=== PATIENT | male | born 1970 | race Caucasian/White ===

== ENCOUNTER 2020-09-02 23:23 | Inpatient (IN) | payer MEDICARE, SELFPAY ==
[2020-09-02 23:34] VITALS: BP 151/78; PULSE 104; RESP 37; TEMP 39.7; O2SAT 85; BMI 20.3
--- NOTE | 2020-09-02 23:38 | XRR_ITS ---
PROCEDURE INFORMATION: Exam: XR Chest Exam date and time: 09/02/2020 11:46 PM Age: 49 years old Clinical indication: Dyspnea; Prior surgery; Surgery date: 6+ months; Surgery type: Right lower lobe lung removal; Additional info: SOB TECHNIQUE: Imaging protocol: XR of the chest. Views: 1 view. COMPARISON: No relevant prior studies available. FINDINGS: Lungs: There is mild multifocal ill-defined opacity in the left lung base. Pleural spaces: There is no pneumothorax or pleural effusion. Heart/Mediastinum: Right lower lobectomy with marked volume loss in the right hemithorax and rightward displacement of the mediastinum. Cardiomediastinal contours are distorted due to mediastinal shift. Bones/joints: There is a healed fracture of the right posterior 4th rib. XR/XR chest 1V portable [id number] IMPRESSION: 1. Mild nonspecific opacity in the left lung base. Possible atelectasis or consolidation. 2. Right lower lobectomy with volume loss in right hemithorax.
--- NOTE | 2020-09-02 23:39 | ECG_ITS ---
[facility] Test Date: 2020-09-02 Pat Name: Blake Soto Department: Room: Gender: Male Improvement Nurse: : 1970 Requested By: Ashish Joyner Order Number: [id number] Namita MD: Leo Cline M.D. Measurements Intervals [place] Rate: 108 P: 250 OR: 158 QRS: 65 QRSD: 87 T: 251 QT: 294 QTc: 394 Interpretive Statements ECTOPIC ATRIAL TACHYCARDIA ST DEVIATION AND MODERATE T-WAVE ABNORMALITY, CONSIDER ANTEROLATERAL ISCHEMIA [-0.1+ mV T WAVE IN V3-V6] ST DEVIATION AND MODERATE T-WAVE ABNORMALITY, CONSIDER INFERIOR ISCHEMIA [-0.1+ mV T WAVE IN II/aVF] No previous ECG available for comparison Electronically Signed On 09-03-2020 12:34:50 CDT by Leo Cline M.D. [id number] f
[2020-09-02 23:44] LABS: ABG PCO2 46.1 mmHg (35-45); ABG PH Result 7.42 (7.35-7.45); Arterial Blood Gas Hematocrit 45.7 % (42-52); Base Excess ABG 4.4 mmol/L (-2.0-2.0); Blood Gas Sample Site Brachial, right; Blood Gas Sample Type Arterial; Carboxyhemoglobin 1.2 %THgb (0.4-20.1); HCO3 ABG 29.8 mmol/L (22-26); HGB O2 Sat 92.1 % (95-100); Methemoglobin 0.8 % (0.4-1.5); Oxygen Device NC; PO2 ABG 64.3 mmHg (80.0-100.0); Total Hemoglobin 14.9 g/dL (14-18)
[2020-09-02 23:54] VITALS: BP 145/81; PULSE 110; RESP 38; O2SAT 95
[2020-09-03] VITALS (10 sets, daily range): BP systolic 92–117; BP diastolic 51–73; PULSE 71–113; RESP 16–31; TEMP 36.6–37.9; O2SAT 94–100
[2020-09-03] MEDS: acetaminophen 325 mg Tablet 650 MG PO ×2 (00:19→08:00)
[2020-09-03 00:21] LABS: Basophils % 0.4 %; Eosinophils % 0.4 %; Hematocrit 41.5 % (42.0-52.0); Hemoglobin 14.2 g/dL (11.7-16.6); Lymphocytes # 0.4 10^3/uL (0.8-4.8); Lymphocytes % 4.1 %; Mean Corpuscular HGB Conc 34.2 g/dL (30.0-36.0); Mean Corpuscular Volume 87.6 fL (80-94); Monocytes # 0.3 10^3/uL (0.2-0.9); Monocytes % 2.9 %; Neutrophils # 8.57 10^3/uL (1.8-7.7); Neutrophils % 91.8 %; Nucleated Red Blood Cells % 0 %; Platelet Count 192 10^3/cmm (130-400); Red Blood Count 4.74 10^6/uL (4.1-5.3); Red Cell Distribution Width 12.1 % (12.1-15.1); White Blood Count 9.3 10^3/uL (4.0-10.0)
[2020-09-03 00:25] LABS: Influenza A by IFA Negative (Negative); Influenza B by IFA Negative (Negative); SARS Covid-2 Antigen Negative (Negative)
[2020-09-03 00:28] LABS: Lactic Sepsis W/Reflex 1.4 mmol/L (0.5-2.2)
[2020-09-03 00:32] LABS: Troponin(5th) Baseline 12 ng/L (0-15)
[2020-09-03 00:41] LABS: Alanine Aminotransferase 30 U/L (0-41); Albumin Level 4.1 g/dL (3.5-5.2); Alkaline Phosphatase 78 IU/L (40-130); Anion Gap 15.5 (5-19); Aspartate Amino Transferase 29 U/L (0-40); Blood Urea Nitrogen 19 mg/dL (6-20); Calcium 8.9 mg/dL (8.5-10.5); Carbon Dioxide 29 mmol/L (22-29); Chloride 95 mmol/L (98-107); Globulin 2.7 g/dL (1.3-4.6); Glomerular Filtration Rate 79.8 mL/min (90-130); Glucose 140 mg/dL (65-115); NT Pro B Type Natriuretic Pept 83 pg/mL (0-125); Osmolality Calculated 285 mOsm/kg (285-295); Potassium 4.5 mmol/L (3.5-5.1); Sodium 135 mmol/L (136-145); Total Protein 6.8 g/dL (6.6-8.7)
[2020-09-03 00:43] LABS: Alcohol Level < 10 mg/dL (0-10)
--- NOTE | 2020-09-03 01:32 | CTR_ITS ---
PROCEDURE INFORMATION: Exam: CTA Chest With Contrast Exam date and time: 09/03/2020 1:48 AM Age: 49 years old Clinical indication: Dyspnea; Prior surgery; Surgery date: 6+ months; Additional info: SOB tachycardia TECHNIQUE: Imaging protocol: Computed tomographic angiography of the chest with contrast. 3D rendering (Not supervised by radiologist): MIP and/or 3D reconstructed images were created by the technologist. Radiation optimization: All CT scans at this facility use at least one of these dose optimization techniques: automated exposure control; mA and/or kV adjustment per patient size (includes targeted exams where dose is matched to clinical indication); or iterative reconstruction. Contrast material: OMNI 350; Contrast volume: 95 ml; Contrast route: INTRAVENOUS (IV); COMPARISON: CR (CHEST, ) 09/02/2020 11:42 PM RADIATION DOSE METRICS: Total DLP (mGy-cm): 547.82 FINDINGS: Pulmonary arteries: The pulmonary arteries are adequately opacified for evaluation to the subsegmental level. There is no filling defect to suggest embolism. Aorta: There is mild aortic atherosclerotic disease. Lungs: There is extensive consolidation throughout the left upper and lower lobe. The left upper lobe fills the right hemithorax. The right lung has been resected. Pleural spaces: Unremarkable. No pneumothorax. No pleural effusion. Heart: Heart size is normal. There is no pericardial effusion. Mediastinal space: There is marked rightward mediastinal shift due to right pneumonectomy. There is truncation of the right main bronchus in the hilum. Lymph nodes: There is no mediastinal or hilar lymphadenopathy. Adrenal glands: The adrenal glands are hypertrophic bilaterally. Bones/joints: Bones are unremarkable. Soft tissues: Unremarkable. CT/CT angio chest PE protcl [id number] IMPRESSION: 1. Extensive consolidation throughout the left lung consistent with infection. 2. No pulmonary embolism. 3. Right pneumonectomy. Radiation Dose CTDIVOL = (mGy): DLP = 547.82 (mGy-cm)
--- NOTE | 2020-09-03 01:39 | ECG_ITS ---
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 Measurements Intervals [place] Rate: 104 P: -87 [place]: 158 QRS: 64 QRSD: 92 T: 236 QT: 286 QTc: 377 Interpretive Statements ECTOPIC ATRIAL TACHYCARDIA ST DEVIATION AND MODERATE T-WAVE ABNORMALITY, CONSIDER ANTERIOR ISCHEMIA [-0.1+ mV T WAVE IN V3/V4] ST DEVIATION AND MODERATE T-WAVE ABNORMALITY, CONSIDER INFERIOR ISCHEMIA [-0.1+ mV T WAVE IN II/aVF] Compared to ECG 09/02/2020 23:42:33 No significant changes Electronically Signed On 09-03-2020 12:38:09 CDT by Leo Cline M.D. [id number]
[2020-09-03] MEDS: iohexol 350 mg/mL 100 mL Btl IV (02:16)
[2020-09-03 02:20] LABS: Troponin 5 2HR 13.05 ng/L (0-15); Troponin 5 2HR Delta 1.05 ABS# (0-10)
[2020-09-03] MEDS: ketorolac 30 mg/mL INJ IVP (02:22)
[2020-09-03] MEDS: azithromycin 500 MG in sodium chloride 0.9% 250 ML 250 MG IV (03:04)
[2020-09-03] MEDS: cefTRIAXone 1,000 MG in sodium chloride 0.9% (plus) 50 ML 100 MG IV (03:05)
--- NOTE | 2020-09-03 03:18 | P.HP_ITS ---
Providers/Chief Complaint Admitting Physician: Julito Holman Chief Complaint: difficulty breathing History of Present Illness 49-year-old male with a past medical history significant for lung cancer s/p right pnuemonectomy/chemo in who presented to ER with shortness of breath. Upon arrival to emergency room patient's initial laboratory work-up showed WBC of 9.3, hemoglobin of 14.2, hematocrit 41.5 and a platelet count of 192 arterial blood gases showed a pH of 7.42, PCO2 of 46.1, PO2 of 64.3 and bicarb of 29.8. Sodium 135, potassium 4.5, chloride 95, bicarb 29, BUN 19 and creatinine of 1.0. Lactic acid of 1.4. Troponin trend was negative. Influenza A B and Covid antigen was negative. PCR was sent. CTA chest: Did not show any evidence of pulmonary embolism however did show extensive consolidation throughout the left lung consistent with infection. Previous right pneumonectomy was noted. Patient was started on ceftriaxone 1 g IV x1 and azithromycin 500 mg IV x1 Review of Systems General: Reports: 10 or more systems reviewed and unremarkable except in HPI and below Medications/Allergies Allergies Allergy/AdvReac Type Severity Reaction Status Date / Time No Known Allergies Allergy Verified 09/02/20 23:50 PFSH Acute PFSH: Medical History (Updated 09/03/20 @ 06:23 by Julito Holman MD) Lung cancer Surgical History (Updated 09/03/20 @ 06:23 by Julito Holman MD) H/O pneumonectomy Social History (Updated 09/03/20 @ 06:23 by Julito Holman MD) Smoking and tobacco status: never smoked Alcohol intake: never Substance/Drug Use: former Vitals/I&O/Wt Last Vital Signs Temp 98.0 F 09/03/20 04:17 Pulse 88 09/03/20 04:17 Resp 16 09/03/20 04:17 BP 97/60 09/03/20 04:17 Pulse Ox 98 09/03/20 04:17 09/02/20 09/02/20 09/03/20 14:59 22:59 06:59 Intake Total 300 / 300 Output Total 0 / 0 Balance 300 / 300 Weight last 48 hrs Weight 68.039 kg Physical Exam Narrative: EXAM NARRATIVE: General: Alert, Awake, oriented x 3 HEENT: EOMI CVS: RRR Chest : Decrease BS on L>R Abd: SOft NT/ND Ext; no Edema Data : 09/03/20 00:15 09/02/20 23:48 Micro: Microbiology 09/03/20 00:08 Blood Culture - Preliminary Blood SPECIMEN COLLECTED 09/02/20 23:48 Blood Culture - Preliminary Blood SPECIMEN COLLECTED A&P Assessment and plan (1) Community acquired pneumonia: CTA Chest PE protocol - Extensive consolidation of Left Continue ceftriaxone 2g IV q24hr Azithromycin 500mg IVdaily Sputum Culture Strep pneumo ag Blood culture x2 Covid-19 PCR - Pending Tylenol PRN Status: Acute Attestations Medical Necessity Statement*: Will require >2 midnight stay in hospital for eval and treatment Time Spent in Patient Care: Greater than 35 minutes (>than 50% of time s pent in counselling and/or direct pt care on unit) . 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
--- NOTE | 2020-09-03 05:51 | W.ED.SOB ---
HPI - SOB/Dyspnea General: Chief Complaint: Shortness of Breath/Dyspnea Stated Complaint: difficulty breathing Time Seen by Provider: 09/02/20 23:33 History of Present Illness: HPI Narrative: 49-year-old male complains of fever, shortness of breath, and lethargy for the last 24 hours. He has a history of a right lower lobectomy for cancer. He has oxygen prescribed, but does not use it. MD elicited complaint: shortness of breath Pertinent past history: pneumonia Onset (ago): hour(s) Timing: constant Severity: moderate Relieving factors: oxygen Associated symptoms: Reports fever(s); Deny abdominal pain, chest pain, dizziness, nausea, palpitations or vomiting Related Data: Home oxygen amount: none Review of Systems Const: Reports: fever(s) and chills Eyes: Denies: change in vision ENMT: Denies: odynophagia or sinus pain Card: Denies: chest pain, palpitations or irregular heart rhythm Resp: Reports: dyspnea, productive cough and wheezing GI: Denies: abdominal pain, nausea or vomiting : Denies: difficulty urinating or hematuria Musc: Denies: neck pain or back pain Skin/Breast: Denies: rash or erythema Neuro: Denies: headache(s), dizziness or vertigo Psych: Denies: anxiety PFSH ED PFSH: Medical History (Updated 09/03/20 @ 07:10 by Ashish Cardona DO) Lung cancer Surgical History (Updated 09/03/20 @ 06:23 by Julito Holman MD) H/O pneumonectomy Social History (Updated 09/03/20 @ 06:23 by Julito Holman MD) Smoking and tobacco status: never smoked Alcohol intake: never Substance/Drug Use: former Physical Exam Const: GENERAL APPEARANCE: ill appearing and frail appearing ORIENTATION/CONSCIOUSNESS: Yes oriented to person, Yes oriented to place and Yes oriented to time HENMT: COMMON NORMALS: normocephalic, external ears normal and Normal external nose present HEAD & SCALP: normocephalic FACE & SINUS: normal facial exam NOSE: Normal external nose present and No nasal discharge present EXTERNAL EAR: Yes external ears normal Eye: COMMON NORMALS: Equal, round and reactive pupils present, EOMs intact bilaterally and conjunctivae normal EYELID: eyelids normal CONJUNCTIVA: Yes conjunctivae normal PUPIL: Yes Equal, round and reactive pupils present Neck/C-Spine: GENERAL: No tracheal deviation Chest: COMMONS NORMALS: normal inspection of the chest CHEST: No tenderness Resp: COMMON NORMALS: negative for clear to auscultation bilaterally EFFORT & INSPECTION: Yes tachypneic, Yes respiratory distress, Yes retractions, No uses accessory muscles and No tracheal deviation AUSCULTATION: not clear to auscultation bilaterally, rhonchi, no wheezes and diminished lung sounds Cardio: COMMON NORMALS: regular rhythm RATE: tachycardic RHYTHM: regular rhythm HEART SOUNDS: no murmurs PERIPHERAL PULSES: radial pulses present GI: INSPECTION: No abdominal distension AUSCULTATION: No Hyperactive bowel sounds present and No Hypoactive bowel sounds present PALPATION: No Guarding due to palpation present (GI) and No Rigid due to palpation PERCUSSION: no dullness to percussion and no tympanic to percussion Neuro: SENSORIUM/ORIENTATION: Yes oriented to person, Yes oriented to place and Yes oriented to time Skin: COMMON NORMALS: no rashes or lesions noted GENERAL SKIN EXAM: no rashes or lesions noted Course Consultations: Consultation #1: reina Vital Signs: Vital signs: Vital Signs Temperature 98.0 F 09/03/20 04:17 Pulse Rate 88 09/03/20 04:17 Respiratory Rate 16 09/03/20 04:17 Blood Pressure 97/60 09/03/20 04:17 Pulse Oximetry 98 09/03/20 04:17 MDM - SOB/Dyspnea MDM Narrative: Medical decision making narrative: 49-year-old male with history of lung cancer. He presents with a fever, shortness of breath, and hypoxia. White count only 9.3. His rapid Covid is negative. PCR is pending. His chest x-ray did not reveal significant infiltrate, however CTA revealed significant consolidation in the left lower lobe. Lab Data: Labs: Lab Results 09/02/20 09/02/20 09/02/20 Range/Units 23:40 23:48 23:48 WBC (4.0-10.0) 10^3/ uL RBC (4.1-5.3) 10^6/u L Hgb (11.7-16.6) g/dL Hct (42.0-52.0) % MCV (80-94) fL MCH (28.0-34.0) pg MCHC (30.0-36.0) g/dL RDW (12.1-15.1) % Plt Count (130-400) 10^3/c mm MPV (7.4-10.4) fL Neut % (Auto) % Lymph % (Auto) % Giles % (Auto) % Eos % (Auto) % Baso % (Auto) % Neut # (Auto) (1.8-7.7) 10^3/u L Lymph # (Auto) (0.8-4.8) 10^3/u L Giles # (Auto) (0.2-0.9) 10^3/u L Eos # (Auto) (0.0-0.8) 10^3/u L Baso # (Auto) (0.0-0.1) 10^3/u L Nucleated RBC % (a uto) % Nucleated RBCs # /100WBC Specimen Type Arterial Sample Site Brachial, right ABG pH 7.42 (7.35-7.45) ABG pCO2 46.1 H (35-45) mmHg ABG pO2 64.3 L (80.0-100.0) mmH g ABG HCO3 29.8 H (22-26) mmol/L ABG Base Excess 4.4 H (-2.0-2.0) mmol/ L Pb Test N/a Hematocrit 45.7 (42-52) % Hgb O2 Saturation 92.1 L (95-100) % Carboxyhemoglobin 1.2 (0.4-20.1) %THgb Methemoglobin 0.8 (0.4-1.5) % Total Hemoglobin 14.9 (14-18) g/dL O2 Delivery Device Nc O2 Liters/Min 3.0 % Mine Car Repairer ID Hinja Sodium 135 L (136-145) mmol/L Potassium 4.5 (3.5-5.1) mmol/L Chloride 95 L (98-107) mmol/L Carbon Dioxide 29 (22-29) mmol/L Anion Gap 15.5 (5-19) BUN 19 (6-20) mg/dL Creatinine 1.0 (0.7-1.2) mg/dL GFR Calculation 79.8 L (90-130) mL/min Glucose 140 H (65-115) mg/dL Calculated Osmolal ity 285 (285-295) mOsm/k g Lactic Acid 1.4 (0.5-2.2) mmol/L Calcium 8.9 (8.5-10.5) mg/dL Total Bilirubin 1.0 (0.15-1.2) mg/dL AST 29 (0-40) U/L ALT 30 (0-41) U/L Alkaline Phosphata se 78 (40-130) IU/L Troponin T Baselin e (0-15) ng/L Troponin T 120 Min [place] (0-15) ng/L Delta Troponin T (0-10) ABS# NT-Pro-B Natriuret Pep 83 (0-125) pg/mL Total Protein 6.8 (6.6-8.7) g/dL Albumin 4.1 (3.5-5.2) g/dL Globulin 2.7 (1.3-4.6) g/dL Ethyl Alcohol < 10 (0-10) mg/dL Influenza Type A A g (Negative) Influenza Type B A g (Negative) SARS-CoV-2 Ag (Rap id) (Negative) 09/02/20 09/02/20 09/02/20 Range/Units 23:48 23:53 23:53 WBC (4.0-10.0) 10^3/ uL RBC (4.1-5.3) 10^6/u L Hgb (11.7-16.6) g/dL Hct (42.0-52.0) % MCV (80-94) fL MCH (28.0-34.0) pg MCHC (30.0-36.0) g/dL RDW (12.1-15.1) % Plt Count (130-400) 10^3/c mm MPV (7.4-10.4) fL Neut % (Auto) % Lymph % (Auto) % Giles % (Auto) % Eos % (Auto) % Baso % (Auto) % Neut # (Auto) (1.8-7.7) 10^3/u L Lymph # (Auto) (0.8-4.8) 10^3/u L Giles # (Auto) (0.2-0.9) 10^3/u L Eos # (Auto) (0.0-0.8) 10^3/u L Baso # (Auto) (0.0-0.1) 10^3/u L Nucleated RBC % (a uto) % Nucleated RBCs # /100WBC Specimen Type Sample Site ABG pH (7.35-7.45) ABG pCO2 (35-45) mmHg ABG pO2 (80.0-100.0) mmH g ABG HCO3 (22-26) mmol/L ABG Base Excess (-2.0-2.0) mmol/ L Pb Test Hematocrit (42-52) % Hgb O2 Saturation (95-100) % Carboxyhemoglobin (0.4-20.1) %THgb Methemoglobin (0.4-1.5) % Total Hemoglobin (14-18) g/dL O2 Delivery Device O2 Liters/Min % Mine Car Repairer ID Sodium (136-145) mmol/L Potassium (3.5-5.1) mmol/L Chloride (98-107) mmol/L Carbon Dioxide (22-29) mmol/L Anion Gap (5-19) BUN (6-20) mg/dL Creatinine (0.7-1.2) mg/dL GFR Calculation (90-130) mL/min Glucose (65-115) mg/dL Calculated Osmolal ity (285-295) mOsm/k g Lactic Acid (0.5-2.2) mmol/L Calcium (8.5-10.5) mg/dL Total Bilirubin (0.15-1.2) mg/dL AST (0-40) U/L ALT (0-41) U/L Alkaline Phosphata se (40-130) IU/L Troponin T Baselin e 12 (0-15) ng/L Troponin T 120 Min [place] (0-15) ng/L Delta Troponin T (0-10) ABS# NT-Pro-B Natriuret Pep (0-125) pg/mL Total Protein (6.6-8.7) g/dL Albumin (3.5-5.2) g/dL Globulin (1.3-4.6) g/dL Ethyl Alcohol (0-10) mg/dL Influenza Type A A g Negative (Negative) Influenza Type B A g Negative (Negative) SARS-CoV-2 Ag (Rap id) Negative (Negative) 09/03/20 09/03/20 Range/Units 00:15 01:40 WBC 9.3 (4.0-10.0) 10^3/ uL RBC 4.74 (4.1-5.3) 10^6/u L Hgb 14.2 (11.7-16.6) g/dL Hct 41.5 L (42.0-52.0) % MCV 87.6 (80-94) fL MCH 30.0 (28.0-34.0) pg MCHC 34.2 (30.0-36.0) g/dL RDW 12.1 (12.1-15.1) % Plt Count 192 (130-400) 10^3/c mm MPV 11.0 H (7.4-10.4) fL Neut % (Auto) 91.8 % Lymph % (Auto) 4.1 % Giles % (Auto) 2.9 % Eos % (Auto) 0.4 % Baso % (Auto) 0.4 % Neut # (Auto) 8.57 H (1.8-7.7) 10^3/u L Lymph # (Auto) 0.4 L (0.8-4.8) 10^3/u L Giles # (Auto) 0.3 (0.2-0.9) 10^3/u L Eos # (Auto) 0.0 (0.0-0.8) 10^3/u L Baso # (Auto) 0.0 (0.0-0.1) 10^3/u L Nucleated RBC % (a uto) 0 % Nucleated RBCs # 0.0 /100WBC Specimen Type Sample Site ABG pH (7.35-7.45) ABG pCO2 (35-45) mmHg ABG pO2 (80.0-100.0) mmH g ABG HCO3 (22-26) mmol/L ABG Base Excess (-2.0-2.0) mmol/ L Pb Test Hematocrit (42-52) % Hgb O2 Saturation (95-100) % Carboxyhemoglobin (0.4-20.1) %THgb Methemoglobin (0.4-1.5) % Total Hemoglobin (14-18) g/dL O2 Delivery Device O2 Liters/Min % Mine Car Repairer ID Sodium (136-145) mmol/L Potassium (3.5-5.1) mmol/L Chloride (98-107) mmol/L Carbon Dioxide (22-29) mmol/L Anion Gap (5-19) BUN (6-20) mg/dL Creatinine (0.7-1.2) mg/dL GFR Calculation (90-130) mL/min Glucose (65-115) mg/dL Calculated Osmolal ity (285-295) mOsm/k g Lactic Acid (0.5-2.2) mmol/L Calcium (8.5-10.5) mg/dL Total Bilirubin (0.15-1.2) mg/dL AST (0-40) U/L ALT (0-41) U/L Alkaline Phosphata se (40-130) IU/L Troponin T Baselin e (0-15) ng/L Troponin T 120 [address] [place] 13.05 (0-15) ng/L Delta Troponin T 1.05 (0-10) ABS# NT-Pro-B Natriuret Pep (0-125) pg/mL Total Protein (6.6-8.7) g/dL Albumin (3.5-5.2) g/dL Globulin (1.3-4.6) g/dL Ethyl Alcohol (0-10) mg/dL Influenza Type A A g (Negative) Influenza Type B A g (Negative) SARS-CoV-2 Ag (Rap id) (Negative) Discharge Plan Discharge Patient Disposition: Admitted As Inpatient Admit Provider: Julito Holman Clinical Impression: Community acquired pneumonia Qualifiers: Laterality: left Lung location: lower lobe of lung Qualified Code(s): J18.9 - Pneumonia, unspecified organism Condition: Fair Coding Level of Care Code ED Certified Legal Secretary Specialist for [facility] Fwd Exam Comprehensive
[2020-09-03] MEDS: sodium chloride 0.9% 1,000 ML 75 ML IV (06:02)
[2020-09-03] MEDS: enoxaparin 40 mg/0.4 mL Syringe SUBCUT (06:03)
[2020-09-03] MEDS: famotidine 20 mg Tablet PO ×2 (08:00→17:04)
--- NOTE | 2020-09-03 09:12 | PC.PHAR ---
pt states he takes care of his own medications-pt states he only has a proair inhaler and albuterol neb solution-pt states he uses [facility] [phone],[facility] [phone],[facility] [phone]-and [facility] [place] [phone] they all states they havent filled those medication for the pt-
--- NOTE | 2020-09-03 11:35 | PC.CHAP ---
Pastoral Care Encounter/Spiritual Assessment Type of Contact [] Declined mica plate layer visit [] Patient/Family/Request visit [] Outpatient visit [x] Follow-up visit [] Physician referral [] Code/Alert [] Routine visit [] Staff referral [] Actively dying [] Patient sleeping [] Family support [] [] Out of room [] Palliative care [] [] Receiving care in room [] Pre-surgical visit [] Trauma [] Long length of stay [] ICU visit [] Other: Relational/Emotional Strength [] Patient feels connected with others/family/visitors/staff [] Distress [] Loneliness/isolation [] Abandonment Spirituality of Patient [] Person of Perla [] Attends Restorationism of their Perla [] Believes in Prayer [] Reads Bible or Advent materials [] There are Spiritual issues to be addressed Physician Chief Of Pathology Interventions [] Prayer [] Active listening [] Non-anxious presence [] Spiritual/emotional support [] Crisis/trauma care [] Spiritual counseling [] Bereavement support [] Provided bereavement packet [] Provided Bible/devotional materials [] Provided toy/stuffed animal, coloring book to patient or family member [] Provided Communion [] Anointing/[place] [] Salvation [] Completed spiritual assessment [] Other: Impact on Illness or Injury [] Angry [] Fearful [] Anxious [] Often cries [] Exhaustion [] Unable to work [] Unable to attend buddhism [] Unable to walk/stand [] Unable to read [] Unable to drive [] Unable to eat/drink [] Unable to sleep [] Unable to be with family [] Patient intubated [] Other: Summary dont enter room Time spent with patient
--- NOTE | 2020-09-03 11:36 | PC.CHAP ---
Pastoral Care Encounter/Spiritual Assessment Type of Contact [] Declined travel specialist visit [] Patient/Family/Request visit [] Outpatient visit [] Follow-up visit [] Physician referral [] Code/Alert [] Routine visit [] Staff referral [] Actively dying [] Patient sleeping [] Family support [] [] Out of room [] Palliative care [] [] Receiving care in room [] Pre-surgical visit [] Trauma [] Long length of stay [] ICU visit [] Other: Relational/Emotional Strength [] Patient feels connected with others/family/visitors/staff [] Distress [] Loneliness/isolation [] Abandonment Spirituality of Patient [] Person of Perla [] Attends Sikhism of their Perla [] Believes in Prayer [] Reads Bible or Gnosticist materials [] There are Spiritual issues to be addressed Bilingual Executive Assistant Interventions [] Prayer [] Active listening [] Non-anxious presence [] Spiritual/emotional support [] Crisis/trauma care [] Spiritual counseling [] Bereavement support [] Provided bereavement packet [] Provided Bible/devotional materials [] Provided toy/stuffed animal, coloring book to patient or family member [] Provided Communion [] Anointing/[place] [] Salvation [] Completed spiritual assessment [] Other: Impact on Illness or Injury [] Angry [] Fearful [] Anxious [] Often cries [] Exhaustion [] Unable to work [] Unable to attend restorationist [] Unable to walk/stand [] Unable to read [] Unable to drive [] Unable to eat/drink [] Unable to sleep [] Unable to be with family [] Patient intubated [] Other: Summary Time spent with patient
--- NOTE | 2020-09-03 12:38 | PM.PN ---
Subjective Subjective: Interval history: Patient was seen and examined this morning, shortness of breath is improved, continued to be afebrile, currently saturating well on 2 L of oxygen via nasal cannula. Vitals/I&O/Wt Last Vital Signs Temp 97.9 F 09/03/20 11:22 Pulse 71 09/03/20 11:22 Resp 17 09/03/20 11:22 BP 93/51 09/03/20 11:22 Pulse Ox 100 09/03/20 11:22 09/02/20 09/03/20 09/03/20 22:59 06:59 14:59 Intake Total 300 / 300 120 / 120 Output Total 0 / 0 Balance 300 / 300 120 / 120 Weight last 48 hrs Weight 66.769 kg Weight 68.039 kg Physical Exam Const: COMMON NORMALS: patient oriented x3 HENMT: COMMON NORMALS: normocephalic and atraumatic HEAD & SCALP: normocephalic and atraumatic Chest: CHEST: Yes Symmetrical chest wall rise Resp: COMMON NORMALS: clear to auscultation bilaterally EFFORT & INSPECTION: Yes symmetric chest movement AUSCULTATION: clear to auscultation bilaterally Cardio: COMMON NORMALS: regular rate, regular rhythm, S1 normal heart sound present, S2 normal heart sound present, No gallops present (Cardio), No murmurs present (Cardio), No rub (Cardio) and Peripheral pulses 2+ throughout RATE: regular rate RHYTHM: regular rhythm HEART SOUNDS: S1 normal heart sound present and S2 normal heart sound present PERIPHERAL PULSES: Peripheral pulses 2+ throughout GI: COMMON NORMALS: Normal to inspection, nondistended, normoactive bowel sounds present, Soft to palpation, non-tender, No hepatosplenomegaly present and no masses AUSCULTATION: Yes normoactive bowel sounds PALPATION: Yes Soft to palpation and Yes No hepatosplenomegaly present RECTAL EXAM: Yes deferred Extremity: COMMON NORMALS: no clubbing, cyanosis or edema and no pedal edema Neuro: COMMON NORMALS: patient oriented x3 Data : 09/03/20 00:15 09/02/20 23:48 Micro: Microbiology 09/03/20 00:08 Blood Culture - Preliminary Blood SPECIMEN COLLECTED 09/02/20 23:48 Blood Culture - Preliminary Blood SPECIMEN COLLECTED A&P Assessment and plan (1) Community acquired pneumonia: CTA Chest PE protocol - Extensive consolidation of Left Continue ceftriaxone 2g IV q24hr Azithromycin 500mg IVdaily Sputum Culture Urine Legionella antigen: Urine bacterial antigen: Blood culture x2: Pending Covid-19 PCR - Pending Tylenol PRN Status: Acute Qualifiers: Laterality: left Lung location: lower lobe of lung Qualified Code(s): J18.9 - Pneumonia, unspecified organism Attestations Medical Necessity Statement*: Patient needs to be in the hospital for management of pneumonia Coding Level of Care Code Acute 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
--- NOTE | 2020-09-03 19:22 | PC.NURSE ---
Report to Flavio KIDD at this time.
[2020-09-03] MEDS: zolpidem 5 mg Tablet PO (22:13)
[2020-09-04] VITALS (7 sets, daily range): BP systolic 91–135; BP diastolic 53–92; PULSE 72–100; RESP 17–18; TEMP 36.9–37.3; O2SAT 94–98
[2020-09-04] MEDS: cefTRIAXone 2,000 MG in sodium chloride 0.9% (plus) 50 ML 100 MG IV (03:54)
[2020-09-04 05:40] LABS: Basophils # 0.1 10^3/uL (0.0-0.1); Basophils % 0.3 %; Eosinophils # 0.1 10^3/uL (0.0-0.8); Eosinophils % 0.8 %; Hematocrit 42.1 % (42.0-52.0); Lymphocytes # 1.2 10^3/uL (0.8-4.8); Lymphocytes % 6.7 %; Mean Corpuscular HGB Conc 33.3 g/dL (30.0-36.0); Mean Corpuscular Hemoglobin 29.9 pg (28.0-34.0); Mean Platelet Volume 10.5 fL (7.4-10.4); Monocytes # 1.3 10^3/uL (0.2-0.9); Monocytes % 7.1 %; Neutrophils # 15.31 10^3/uL (1.8-7.7); Neutrophils % 84.5 %; Nucleated Red Blood Cells % 0 %; Platelet Count 167 10^3/cmm (130-400); Red Blood Count 4.68 10^6/uL (4.1-5.3); Red Cell Distribution Width 12.3 % (12.1-15.1); White Blood Count 18.1 10^3/uL (4.0-10.0)
[2020-09-04 06:04] LABS: Alanine Aminotransferase 19 U/L (0-41); Albumin Level 3.5 g/dL (3.5-5.2); Alkaline Phosphatase 77 IU/L (40-130); Anion Gap 15.2 (5-19); Aspartate Amino Transferase 16 U/L (0-40); Blood Urea Nitrogen 18 mg/dL (6-20); Calcium 8.6 mg/dL (8.5-10.5); Carbon Dioxide 26 mmol/L (22-29); Chloride 100 mmol/L (98-107); Globulin 2.5 g/dL (1.3-4.6); Glomerular Filtration Rate 120.4 mL/min (90-130); Glucose 96 mg/dL (65-115); Osmolality Calculated 286 mOsm/kg (285-295); Potassium 4.2 mmol/L (3.5-5.1); Sodium 137 mmol/L (136-145); Total Bilirubin 0.5 mg/dL (0.15-1.2)
[2020-09-04 06:06] LABS: Procalcitonin 8.55 ng/mL (0-0.5)
[2020-09-04] MEDS: enoxaparin 40 mg/0.4 mL Syringe SUBCUT (06:26)
[2020-09-04] MEDS: azithromycin 500 MG in sodium chloride 0.9% 250 ML 250 MG IV (07:51)
[2020-09-04] MEDS: famotidine 20 mg Tablet PO (07:52)
--- NOTE | 2020-09-04 11:28 | PM.DCS ---
Discharge Providers Date of Admission: 09/03/20 03:11 Date of Discharge: September 04, 2020 Attending Provider at Admission: Julito Holman Attending Provider at Discharge: Yasir Grant MD Diagnoses at Discharge Discharge Diagnosis (1) Community acquired pneumonia: Status: Acute Qualifiers: Laterality: left Lung location: lower lobe of lung Qualified Code(s): J18.9 - Pneumonia, unspecified organism Reason for Visit Reason for Visit: difficulty breathing Hospital Course Hospital Course 49-year-old male with a past medical history significant for lung cancer s/p right pnuemonectomy/chemo in s who presented to ER with shortness of breath. Upon arrival to emergency room patient's initial laboratory work-up showed WBC of 9.3, hemoglobin of 14.2, hematocrit 41.5 and a platelet count of 192 arterial blood gases showed a pH of 7.42, PCO2 of 46.1, PO2 of 64.3 and bicarb of 29.8. Sodium 135, potassium 4.5, chloride 95, bicarb 29, BUN 19 and creatinine of 1.0. Lactic acid of 1.4. Troponin trend was negative. Influenza A B and Covid antigen was negative. PCR was sent. CTA chest: Did not show any evidence of pulmonary embolism however did show extensive consolidation throughout the left lung consistent with infection. Previous right pneumonectomy was noted. Patient was started on ceftriaxone 1 g IV x1 and azithromycin 500 mg IV x1. During the hospital stay he was managed for pneumonia, responded well to the IV antibiotic, blood cultures at the time of discharge was negative. Urine Legionella as well as bacterial antigen is still pending. Patient showed significant clinical improvement at the time of discharge his shortness of breath had resolved. Home oxygen evaluation was done, patient failed to qualify for home oxygen. He was discharged on p.o. levofloxacin 750 mg for additional 7-days. He responded well to the above medical management was discharged in stable condition. Physical Exam Const: COMMON NORMALS: patient oriented x3 HENMT: COMMON NORMALS: normocephalic and atraumatic HEAD & SCALP: normocephalic and atraumatic Chest: CHEST: Yes Symmetrical chest wall rise Resp: COMMON NORMALS: clear to auscultation bilaterally EFFORT & INSPECTION: Yes symmetric chest movement AUSCULTATION: clear to auscultation bilaterally Cardio: COMMON NORMALS: regular rate, regular rhythm, S1 normal heart sound present, S2 normal heart sound present, No gallops present (Cardio), No murmurs present (Cardio), No rub (Cardio) and Peripheral pulses 2+ throughout RATE: regular rate RHYTHM: regular rhythm HEART SOUNDS: S1 normal heart sound present and S2 normal heart sound present PERIPHERAL PULSES: Peripheral pulses 2+ throughout GI: COMMON NORMALS: Normal to inspection, nondistended, normoactive bowel sounds present, Soft to palpation, non-tender, No hepatosplenomegaly present and no masses AUSCULTATION: Yes normoactive bowel sounds PALPATION: Yes Soft to palpation and Yes No hepatosplenomegaly present RECTAL EXAM: Yes deferred Extremity: COMMON NORMALS: no clubbing, cyanosis or edema and no pedal edema Neuro: COMMON NORMALS: patient oriented x3 Discharge Data Data Completed and Pending: Completed Studies During Hospitalization Category Date Time Status CT angio chest PE protcl 18010 Urge nt Cat Scan 09/03/20 01:32 Completed XR chest 1V [place] [id number] Urgent Exams 09/02/20 23:38 Completed Pending at discharge Category Date Time Status Bacterial Antigen Routine Lab 09/03/20 18:30 Uncollected Basic Metabolic P ronald AM LABS Lab 09/05/20 04:00 Ordered Basic Metabolic P ronald AM LABS Lab 09/06/20 04:00 Ordered Basic Metabolic P ronald AM LABS Lab 09/07/20 04:00 Ordered Blood Culture Sta t Lab 09/02/20 23:48 Results Complete Blood Co unt w/Auto AM LABS Lab 09/05/20 04:00 Ordered Complete Blood Co unt w/Auto AM LABS Lab 09/06/20 04:00 Ordered Complete Blood Co unt w/Auto AM LABS Lab 09/07/20 04:00 Ordered Coronavirus Test [facility] Lab 09/03/20 03:30 Received Legionella Antige n STAT Routine Lab 09/03/20 18:30 Uncollected Procalcitonin AM LABS Lab 09/05/20 04:00 Ordered Labs from last 24 hours 09/04/20 09/04/20 09/04/20 05:08 05:08 05:08 WBC 18.1 H RBC 4.68 Hgb 14.0 Hct 42.1 MCV 90.0 MCH 29.9 MCHC 33.3 RDW 12.3 Plt Count 167 MPV 10.5 H Neut % (Auto) 84.5 Lymph % (Auto) 6.7 [place] % (Auto) 7.1 Eos % (Auto) 0.8 Baso % (Auto) 0.3 Neut # (Auto) 15.31 H Lymph # (Auto) 1.2 [place] # (Auto) 1.3 H Eos # (Auto) 0.1 Baso # (Auto) 0.1 Nucleated RBC % (a uto) 0 Nucleated RBCs # 0.0 Sodium 137 Potassium 4.2 Chloride 100 Carbon Dioxide 26 Anion Gap 15.2 BUN 18 Creatinine 0.7 GFR Calculation 120.4 Glucose 96 Calculated Osmolal ity 286 Calcium 8.6 Total Bilirubin 0.5 AST 16 ALT 19 Alkaline Phosphata se 77 Total Protein 6.0 L Albumin 3.5 Globulin 2.5 Procalcitonin 8.55 H Vitals: Last Vital Signs Temp 99.2 F 09/04/20 07:48 Pulse 77 09/04/20 07:48 Resp 17 09/04/20 07:48 BP 126/69 09/04/20 07:48 Pulse Ox 97 09/04/20 07:48 Discharge Plan Discharge Patient Disposition: Home Condition: Fair Prescriptions: New levofloxacin 750 mg tablet 750 mg PO DAILY 7 Days Qty: 7 RF: 0 Continued albuterol sulfate 2.5 mg /3 mL (0.083 %) Solution For Nebulization 2.5 mg inhalation PRN RF: 0 Tylenol Extra Strength 500 mg Tablet 1,000 mg PO PRN RF: 0 ProAir HFA 90 mcg/actuation Hfa Aerosol Inhaler 2 puff INHALATION Q4H PRN (Reason: Shortness Of Breath) RF: 0 Discharge Orders: Discharge Order (Routine); Ordered 09/04/20 Ordered By: Yasir Grant Referrals: Bria Ozuna MD [Physician] - 09/06/20 10:40 am (APPOINTMENT WITH [facility] [phone]) Discharge Diet: Regular Discharge Activity: Resume usual activity Patient Instructions: Levofloxacin (By mouth), Pneumonia (GEN), Opioid Safety, Pneumonia Stoplight Discharge Attestations Time Spent in Discharge Care*: less than 30 min Specific Discharge Activities: educating patient, educating and/or supporting family/caregiver, discussing with pcp/other providers, discussing with special education case manager/social workers/dc planners, documenting/other paperwork and evaluating patient/reviewing data Status at Discharge: Cognitive status at discharge: cognitively intact, Behavioral status at discharge: cooperative, Functional status at discharge: independent ambulation Overall status at discharge: patient is back to baseline Quality Metrics Clinical Quality Measures During this hospital stay, did patient experience: None Coding Level of Care Code Acute Chg FW DC note Exam Detailed Diagnoses Community acquired pneumonia J18.9 Laterality: left Lung location: lower lobe of lung
--- NOTE | 2020-09-04 13:27 | PC.NURSE ---
IV removed at this time. Patient tolerated well. Reviewed patient's discharge instructions with patient. Patient verbalized understanding of follow up appointments and medications to be picked up at [facility]. Patient is A&Ox3. Respirations even and non-labored on room air. Patient ambulated to private car.
[2020-09-04 16:42] LABS: Coronavirus Test Green County Not Detected
== END 2020-09-04 13:20 | disposition home or self-care (01) | DRG 195 ==
LOC: ER 09-03 01:45 → MEDSURG 09-03 03:30
PROVIDERS: Admitting Provider Hospitalist; Emergency Provider Emergency Medicine; Visit Provider Internal Medicine
DX: J18.9 Pneumonia, unspecified organism (principal); Z85.118 Personal history of other malignant neoplasm of bronchus and lung; Z92.21 Personal history of antineoplastic chemotherapy
CPT/HCPCS: 36415; 36600; 71045; 71275; 80053; 80307; 82805; 83605; 83880; 84145; 84484; 85025; 87040; 87426; 87635; 87804; 93005; 96365; 96367; 96372; 96375; 99285; J0456; J0696; J1650; J1885; J7030; J7050; Q9967